=== PATIENT | male | born 1965 | race Caucasian/White ===

== ENCOUNTER 2022-06-28 19:55 | Emergency (ER) | payer OTHER ==
[~2022-06-28] VITALS: Ht 175.3 cm; Wt 95.3 kg
[2022-06-28] MEDS ORDERED: LIDOCAINE HCL 2% 20 ML VIAL ONE (21:15)
[2022-06-28] MEDS ORDERED: KETOROLAC TROMETHAMINE 60 MG INJ IM ONE ×2 (21:15→21:16)
[2022-06-28] MEDS ORDERED: LIDOCAINE HCL 2% 20 ML VIAL IJ ONE (21:15)
--- NOTE | 2022-06-28 21:33 | NUR ---
Patient placed in right knee immobilizer per Dr. Jennifer vidales.
[2022-06-28] MEDS ORDERED: HYDR-3980 PO (22:48)
--- NOTE | 2022-06-28 23:52 | NUR ---
Patient discharged to home in stable condition. Written and verbal after care instructions given. Patient verbalizes understanding of instructions. Stressed follow up or return to ER for worsening s/s.
[2022-06-29 02:59] VITALS: BP 115/65
== END 2022-06-28 23:55 | disposition home or self-care (01) ==
LOC: ER 19:55
DX: M25.461 Effusion, right knee (principal); R60.0 Localized edema
CPT/HCPCS: 20610; 99283; 73564; 96372; J1885; J3490; A4663